=== PATIENT | male | born 1970 | race Caucasian/White ===

== ENCOUNTER 2021-12-13 18:16 | Emergency (ER) | payer BC, SELFPAY ==
[2021-12-13 18:17] VITALS: BP 131/110; PULSE 74; RESP 16; TEMP 36.8; O2SAT 97; BMI 28.7
--- NOTE | 2021-12-13 18:47 | ED.VIS.GI ---
HPI HPI - GI History of Present Illness Chief Complaint: Flank Pain Narrative Narrative: Patient who denies significant past medical history with the exception of previous uric acid stone 8 to 9 years ago presents with right flank pain that began suddenly approximately 2 hours ago. States he has had cold chills/sweats and sharp, stabbing pain in his right flank that radiates towards the front. She also had urinary frequency with this, stating that he feels like he needs to urinate all the time. He has not taken any analgesics. He states with his last uric acid stone that it did not show up on CT, but it was allowed to sit for 8 days until he had surgery. He has not had problems since then. [facility] Medical History History of kidney stones Home Medications cephalexin 500 mg capsule 500 mg PO BID #14 caps 12/13/21 [Rx Last Taken Unknown] hydrocodone-acetaminophen 5-325mg 5mg-325mg 1 tab PO Q6H PRN pain 3 days #12 tabs 12/13/21 [Rx Last Taken Unknown] ketorolac 10 mg tablet 10 mg PO Q8H PRN pain 5 days #15 tabs 12/13/21 [Rx Last Taken Unknown] tamsulosin 0.4 mg capsule (Flomax) 0.4 mg PO QHS #10 caps 12/13/21 [Rx Last Taken Unknown] Allergy/AdvReac Type Severity Reaction Status Date / Time No Known Allergies Allergy Verified 12/13/21 18:19 Surgical History History of hand surgery History of knee surgery Social History Smoking Status: Never smoker ROS ROS ED ROS Narrative Constitutional: No fever, positive chills/cold sweats HEENT: No sore throat. No neck pain. No loss of vision. No rhinorrhea. Cardiovascular: No chest pain. No palpitations. No pedal edema. Respiratory: No cough, no shortness of breath. Abdominal: No abdominal pain. No nausea. No vomiting. Genitourinary: No dysuria. No hematuria. Right flank pain. Urinary frequency. Musculoskeletal: No myalgias. No arthralgias. Neurologic: No headaches. No dizziness. No lightheadedness. Skin: No rash. No change in color. Psychiatric: No depression. No anxiety. EXAM Physical Exam Narrative Exam Narrative: Afebrile. Vital signs noted. HEENT: Normocephalic. Atraumatic. PERRL, EOMI. Neck soft and supple. No point tenderness or step off. Cardiovascular: Regular rate and rhythm. No murmurs, rubs, or gallops appreciated. Respiratory: No tachypnea. Lungs clear to auscultation bilaterally. Gastrointestinal: Abdomen soft, nontender, with normoactive bowel sounds. No rebound or guarding. No CVA tenderness to percussion bilaterally. Neurological: Awake. Alert. Nonfocal, nonlateralizing. Skin: No rash. Normal color. No pallor. Musculoskeletal: No pedal edema. Full range of motion extremities. Const Vital Signs: 12/13/21 18:17 Temperature 98.2 F Temperature Source Temporal Pulse Rate 74 Respiratory Rate 16 Blood Pressure 131/110 H Blood Pressure Mean 117 Pulse Ox 97 Oxygen Delivery Method Room Air MDM MDM MDM Narrative Medical decision making narrative: Kidney stone work-up was pursued. I do feel CT imaging is indicated. Even though he had uric acid stones in the past, I will look for hydronephrosis on the right as that is where he is having his pain. He was administered a bolus of normal saline intravenously and Toradol 30 mg intravenously initially. CBC shows slightly elevated white count of 13.0, hemoglobin normal at 15.2 with a normal platelet count of 344. BMP shows normal creatinine of 1.25 with a BUN of 18, glucose appropriately elevated at 135 with a normal anion gap of 9. Urinalysis shows 50-100 RBCs with 5-10 WBCs. Urine was sent for culture. Given his elevated white count of 13, I will start him on Keflex and give him his first dose here. His CT of the abdomen and pelvis does show 0.4 cm x 0.5 cm ureteral stone at the UVJ causing hydronephrosis. He will be given prescriptions for Penrose, Flomax, Toradol, and Keflex. He will follow-up with Dr. Torres as he has seen him in the past. Return instructions to the emergency department were reviewed. Disposition is discharged home in stable condition. Lab Data Attestation: I reviewed the patient's lab results. Labs: Laboratory Results - last 24 hr 12/13/21 12/13/21 12/13/21 18:30 19:00 19:00 WBC 13.0 H RBC 5.07 Hgb 15.2 Hct 44.8 MCV 88.4 MCH 30.0 MCHC 33.9 RDW Std Deviation 40.6 RDW Coeff of Tita 12.5 Plt Count 344 MPV 10.2 Immature Gran % (Auto) 0.800 Neut % (Auto) 54.6 Lymph % (Auto) 28.2 [place] % (Auto) 9.7 Eos % (Auto) 5.8 H Baso % (Auto) 0.9 Absolute Neuts (auto) 7.1 Absolute Lymphs (auto) 3.68 Nucleated RBC % 0 Sodium 140 Potassium 4.0 Chloride 104 Carbon Dioxide 27.0 Anion Gap 9 BUN 18 Creatinine 1.25 Estim Creat Clear Calc 73.81 Est GFR (MDRD) Af Amer 79 Est GFR (MDRD) Non-Af 65 BUN/Creatinine Ratio 14.4 Glucose 135 H Calcium 9.3 Urine Color Yellow Urine Clarity Clear Urine pH 6.0 Ur Specific [place] 1.025 Urine Protein 15 H Urine Glucose (UA) Normal Urine Ketones 5 H Urine Occult Blood 250 H Urine Nitrite Negative Urine Bilirubin Negative Urine Urobilinogen Normal Ur Leukocyte Esterase Negative Urine RBC 50-100 SEEN Urine WBC 5-10 SEEN Ur Squamous Epith Cells 0-5 SEEN Urine Bacteria RARE Urine Mucus 0 SEEN Radiography Diagnostic Testing: Clinical Impression(s) from Imaging Studies Abdomen/Pelvis CT 12/13/21 19:03 IMPRESSION: Mild to moderate right hydronephrosis and hydroureter with an obstructing right UVJ calculus. Colonic diverticulosis. There is no appendicitis, diverticulitis, ascites, abscess, collection, perforation or obstruction. Electronically Signed: Melinda Guzman MD at 20:55 EDT Reading Location ID and State: , Service support , Discharge Plan Triage Chief Complaint: Flank Pain ED Provider: To Guzman Dx/Rx/DC Orders Clinical Impression: Ureterolithiasis, Hydronephrosis, Colic, ureteral Instructions: ED Kidney Stone w/ Colic Prescriptions: New hydrocodone-acetaminophen 5-325 mg tablet 1 tab PO Q6H PRN (Reason: pain) 3 Days Qty: 12 0RF tamsulosin [Flomax] 0.4 mg capsule 0.4 mg PO QHS Qty: 10 0RF ketorolac 10 mg tablet 10 mg PO Q8H PRN (Reason: pain) 5 Days Qty: 15 0RF cephalexin 500 mg capsule 500 mg PO BID Qty: 14 0RF Primary Care Provider: Radha Brown Referrals: Fernando Torres MD [Med Staff - Active Staff] - 3-5 Days Jodi Duncan NP, [facility] [Non-Staff] - Disposition Disposition: Home, Self Care
[2021-12-13] MEDS: Ketorolac 30 MG/ML Syringe IV (18:56)
--- NOTE | 2021-12-13 19:03 | CT_ITS ---
STUDY: CT ABDOMEN AND PELVIS WITHOUT CONTRAST REASON FOR EXAM: Male, 51 years old. Kidney Stone RADIATION DOSAGE (If Supplied By Facility): CTDIvol = ( 11.92 ) mGy, DLP = ( 667.10 ) mGycm TECHNIQUE: Transaxial 2.5 mm images were obtained from the dome of the diaphragm to the symphysis pubis without oral contrast, and without intravenous contrast. Sagittal and coronal images were reconstructed. This examination is limited for the evaluation of gastrointestinal, solid organs and vascular structures due to the lack of intravenous and oral contrast. Individualized dose optimization techniques were used for this CT. COMPARISON: None. FINDINGS: The visualized lung bases are unremarkable. The visualized portions of the heart are within normal limits. Normal liver. Normal gallbladder and extrahepatic biliary system. Normal spleen. Normal pancreas. Normal bilateral adrenal glands. [id number] right hydronephrosis and hydroureter with an obstructing right UVJ calculus measuring 0.4 x 0.5 cm. Normal left kidney. Normal visualized stomach. Normal small intestine. There are few sigmoid colonic diverticula consistent with diverticulosis. The appendix is visualized and appears normal. Normal abdominal aorta. Normal inferior vena cava. Normal retroperitoneum. Decompressed urinary bladder. Normal visualized prostate gland. Normal abdominal wall. Normal osseous structures. CT/Abdomen/Pelvis without Cont IMPRESSION: Mild to moderate right hydronephrosis and hydroureter with an obstructing right UVJ calculus. Colonic diverticulosis. There is no appendicitis, diverticulitis, ascites, abscess, collection, perforation or obstruction. Electronically Signed: Melinda Guzman MD at 20:55 EDT Reading Location ID and State: , Service support ,
[2021-12-13 19:14] LABS: Mucous, Urine 0 SEEN /hpf (<or=2+)
[2021-12-13 19:16] LABS: Absolute Lymphocyte Count 3.68 X10^3/uL (0.83-4.51); Absolute Neutrophil Count 7.1 X10^3/uL (2.0-7.7); Basophil# 0.12 X10^3/uL; Basophil% 0.9 % (0-1); Eosinophil# 0.76 X10^3/uL; Eosinophils% 5.8 % (0-5); Hematocrit 44.8 % (40-54); Hemoglobin 15.2 g/dL (13.0-16.5); Lymphocyte # 3.68 X10^3/ul (0.83-4.51); Lymphocyte % 28.2 % (19-41); Mean Corp Hgb Conc 33.9 g/dL (32-36); Mean Corpuscular Volume 88.4 fL (80-94); Mean Platelet Vol. 10.2 fl (6.2-12.0); Monocyte# 1.26 X10^3/uL; Monocyte% 9.7 % (0-10); NRBC Flagged by Analyzer 0 % (0-5); Neutrophil % 54.6 % (47-70); Platelet Count 344 K/mm3 (150-450); RBC Distribution Width CV 12.5 % (11.6-14.6); RBC Distribution Width SD 40.6 fl (35.1-43.9); Red Blood Count 5.07 M/mm3 (4.6-6.2)
[2021-12-13 19:17] LABS: Color, Urine Yellow (Yellow); Glucose, Dipstick Normal (Normal); Ketone-Dipstick 5 mg/dl (Negative); Leukocyte Esterase-Dipstick Negative /ul (Negative); Nitrite-Dipstick Negative (Negative); Occult Blood-Urine 250 /ul (Negative); Protein-Dipstick 15 mg/dl (Negative); Specific Gravity, Urine 1.025 (1.002-1.030); Urine Bilirubin Dipstick Negative (Negative); Urine Clarity Clear (Clear); Urine Urobilinogen Normal (Normal)
[2021-12-13 19:32] LABS: Anion Gap 9 (5-15); BUN 18 mg/dL (7-18); BUN/Creat Ratio 14.4 RATIO (10-20); Calcium,Total 9.3 mg/dL (8.5-10.1); Chloride 104 mmol/L (98-107); Creatinine, Serum 1.25 mg/dL (0.70-1.30); EST Glomerular Filtration Rate 65 mL/min (>60); Est Glom Filt Rate - Afr Amer 79 mL/min (>60); Estimated Creatinine Clearance 73.81 ml/min; Glucose 135 mg/dL (74-106); Sodium Level 140 mmol/L (136-145)
[2021-12-13 19:32] LABS: Bacteria RARE /hpf (None Seen); Red Blood Cells-Urine 50-100 SEEN /hpf (0-5); Squamous Epithelial Cells - UA 0-5 SEEN /hpf (0-5); White Blood Cells 5-10 SEEN /hpf (0-5)
[2021-12-13] MEDS: Cephalexin 250 MG Capsule 500 MG PO (21:52)
[2021-12-13 21:57] VITALS: BP 132/108; RESP 16
== END 2021-12-13 22:21 | disposition home or self-care (01) ==
PROVIDERS: Emergency Provider Emergency Medicine; PCP Internal Medicine; Visit Provider Emergency Medicine
DX: N13.2 Hydronephrosis with renal and ureteral calculous obstruction (principal); Z87.442 Personal history of urinary calculi
CPT/HCPCS: 74176; 80048; 81001; 85025; 87086; 96374; 99284; A4216

== ENCOUNTER → 2023-03-03 | Outpatient (CLI) | payer SELFPAY, BC ==
--- NOTE | 2023-03-03 17:35 | US_ITS ---
INDICATION: thyroid nodule EXAMINATION: Ultrasound US Thyroid (eg thyroid, parathyroid, parotid) TECHNIQUE: Ortiz scale and color doppler imaging was performed of the thyroid gland. COMPARISON: 05/23/2016 FINDINGS: RIGHT THYROID LOBE: 4.3 x 2.3 x 1.8 cm. Homogeneous echotexture with normal vascularity. [Multiple subcentimeter nodules again demonstrated, largest measures 7 x 5 x 4 mm. The nodule is largely cystic and anechoic, wider than tall with smooth margins and single macrocalcification, TI RADS level 1 or benign. LEFT THYROID LOBE: 5.2 x 2.1 x 1.7 cm. Homogeneous echotexture with normal vascularity. [Multiple subcentimeter nodules again demonstrated, largest measures 9 x 6 x 4 mm. The nodule is largely cystic and anechoic, wider than tall with smooth margins and single associated macrocalcification, TI RADS level 1 or benign. ISTHMUS: 2 mm. No thyroid nodules are present. US/Thyroid IMPRESSION: Essentially stable multinodular thyroid with largest nodules subcentimeter and benign by TI RADS characterization. No routine follow-up indicated. Electronically Signed: Tyler Marquez MD at 18:41 EST ,
== END | disposition home or self-care (01) ==
PROVIDERS: PCP Internal Medicine; Referring Provider Internal Medicine; Visit Provider Internal Medicine
DX: E04.1 Nontoxic single thyroid nodule (principal)
CPT/HCPCS: 76536